=== PATIENT | male | born 1995 | race Caucasian/White ===

== ENCOUNTER 2024-12-12 21:17 | Emergency (ER) | payer SELFPAY ==
[2024-12-12] MEDS ORDERED: Lidocaine 1% PF 5 ML VIAL ONE (21:41)
[2024-12-12] MEDS ORDERED: Amoxicillin/Potassium Clav 875 MG TAB ONE (21:57)
[2024-12-12] MEDS ORDERED: HYDROcodone/Acetaminophen 5/325 mg Tablet ONE (21:57)
== END 2024-12-12 22:20 | disposition home or self-care (01) ==
LOC: BURERS 21:17
DX: L02.31 Cutaneous abscess of buttock (principal)
CPT/HCPCS: 10060

== ENCOUNTER 2025-03-05 11:13 | Emergency (ER) | payer SELFPAY | END 2025-03-05 12:37 | disposition home or self-care (01) | LOC: BURERS 11:13 | DX: S93.401A Sprain of unspecified ligament of right ankle, initial encounter (principal); V86.55XA Driver of 3- or 4- wheeled all-terrain vehicle (ATV) injured in nontraffic accident, initial encounter; Y93.89 Activity, other specified | CPT/HCPCS: 99284 ==